=== PATIENT | male | born 1985 | race Two or more races ===

== ENCOUNTER 2018-09-16 17:20 | Emergency (ER) | payer OTHER ==
[~2018-09-16] VITALS: Ht 203.2 cm; Wt 120.5 kg
[2018-09-16 18:23] LABS: HEMATOCRIT 41.5 % (39.0-50.0); HEMOGLOBIN 14.6 g/dl (14.0-18.0); IMMATURE GRANULOCYTES 0.2 % (0.0-5.0); MEAN CELL VOLUME 84.2 fL CALC (80.0-100.0); MEAN CORPUSCULAR HGB 29.6 pG CALC (26.0-32.0); MEAN CORPUSCULAR HGB CONC 35.2 g/L CALC (32.0-36.0); NEUT# 7.93 thou/uL (1.82-7.42); RED BLOOD COUNT 4.93 mill/uL (4.70-6.10); RED CELL DISTRI WIDTH 11.4 % (11.5-15.5)
[2018-09-16 18:35] LABS: ALKALINE PHOSPHATASE 87 u/l (38-126); ANION GAP 14 (6-22 (CALC)); BILIRUBIN, TOTAL 1.6 mg/dL (0.0-1.4); BUN 8 mg/dL (9-20); BUN/CREATININE RATIO 10 (12-20 (CALC)); CARBON DIOXIDE 22 mmol/l (22-30); CHLORIDE 105 mmol/l (95-108); CREATININE 0.8 mg/dL (0.7-1.3); GFR > 60 ML/MIN (>=60 (CALC)); GFR FOR AFR.AMER. > 60 ML/MIN (>=60 (CALC)); POTASSIUM 3.7 mmol/l (3.5-5.1); SGOT/AST 21 u/l (17-59); SODIUM 138 mmol/l (137-146); TOTAL PROTEIN 7.2 g/dL (6.3-8.2)
[2018-09-16 19:17] LABS: URINE BILIRUBIN - DIPSTICK NEGATIVE (NEGATIVE); URINE BLOOD DIPSTICK NEGATIVE (NEGATIVE); URINE COLOR YELLOW; URINE GLUCOSE - DIPSTICK NEGATIVE (NEGATIVE); URINE KETONE TRACE mg/dL (NEGATIVE); URINE LEUK ESTERASE NEGATIVE (NEGATIVE); URINE NITRITE - DIPSTICK NEGATIVE (Negative); URINE PH 8.5 (4.5-8.0); URINE PROTEIN - DIPSTICK TRACE mg/dL (NEG-TRACE); URINE SPECIFIC GRAVITY 1.015; URINE UROBILINOGEN - DIPSTICK 0.2 E.U./dL (0.2)
[2018-09-16 19:20] LABS: BARBITURATES NEGATIVE (NEGATIVE); COCAINE NEGATIVE (NEGATIVE); METHADONE NEGATIVE (NEGATIVE); OXCYCODONE NEGATIVE (NEGATIVE); TETRAHYDROCANNABIONOL NEGATIVE (NEGATIVE); TRICYLIC ANTIDEPRESSANTS NEGATIVE (NEGATIVE)
[2018-09-16] MEDS ORDERED: PREVACID30 M1 PO (19:23)
[2018-09-16] MEDS ORDERED: ZOFRAN ODT4 MG PO (19:23)
[2018-09-16 19:33] VITALS: BP 138/72
== END 2018-09-16 19:48 | disposition home or self-care (01) ==
LOC: ED 17:20 → EDSEX 17:59 → ED 19:48
PROVIDERS: Emergency Medicine
DX: B34.9 Viral infection, unspecified (principal); R50.9 Fever, unspecified
CPT/HCPCS: S0164

== ENCOUNTER 2020-04-30 16:57 | Inpatient (IN) | payer MEDICAID ==
[~2020-04-30] VITALS: Ht 203.2 cm; Wt 108.9 kg
[~2020-04-30 16:57] MED LIST: PREVACID30 M1 PO; ZOFRAN ODT4 MG PO
--- NOTE | 2020-04-30 17:00 | NUR ---
PT AMB TO ROOM WITH STEADY GAIT
--- NOTE | 2020-04-30 17:30 | NUR ---
PT MEDICATED PER MAR FOR RLQ ABD PAIN; PT AND FAMILY ADVISED OF CONTINUED WAIT TIME; DENIES ANY OTHER NEEDS AT THIS TIME; VSS; WILL CONTINUE TO MONITOR
[2020-04-30 17:44] LABS: HEMATOCRIT 42.5 % (39.0-50.0); IMMATURE GRANULOCYTES 0.3 % (0.0-5.0); MEAN CELL VOLUME 84.2 fL CALC (80.0-100.0); MEAN CORPUSCULAR HGB 27.7 pG CALC (26.0-32.0); MEAN CORPUSCULAR HGB CONC 32.9 g/dL CAL (32.0-36.0); NEUT# 7.98 thou/uL (1.82-7.42); RED BLOOD COUNT 5.05 mill/uL (4.70-6.10); RED CELL DISTRI WIDTH 11.9 % (11.5-15.5)
[2020-04-30 18:06] LABS: ALBUMIN 4.7 g/dL (3.2-5.0); ALKALINE PHOSPHATASE 90 u/l (38-126); AMYLASE 60 u/l (30-110); ANION GAP 12 (6-22 (CALC)); BILIRUBIN, TOTAL 1.2 mg/dL (0.0-1.4); BUN 15 mg/dL (9-20); BUN/CREATININE RATIO 13 (12-20 (CALC)); CARBON DIOXIDE 29 mmol/l (22-30); CHLORIDE 101 mmol/l (95-108); CREATININE 1.1 mg/dL (0.7-1.3); GFR > 60 ML/MIN (>=60 (CALC)); GFR FOR AFR.AMER. > 60 ML/MIN (>=60 (CALC)); LIPASE 188 u/l (23-300); POTASSIUM 4.3 mmol/l (3.5-5.1); SGOT/AST 23 u/l (17-59); SODIUM 138 mmol/l (137-146); TOTAL PROTEIN 7.9 g/dL (6.3-8.2)
--- NOTE | 2020-04-30 18:25 | NUR ---
PT RESTING ON STRETCHER; NO S/S OF DISTRESS NOTED; PT STATES PAIN HAS IMPROVED; ADVISED OF CONTINUED WAIT TIME FOR TESTING; VSS; WILL CONTINUE TO MONITOR
--- NOTE | 2020-04-30 18:56 | NUR ---
REPORT TO COURTNEY PERDOMO
--- NOTE | 2020-04-30 19:07 | NUR ---
RETURNED FROM CT
--- NOTE | 2020-04-30 19:41 | NUR ---
PT RESTING. NAD. VSS. AT BEDSIDE. WAS IN AND ADVISED OF APPY AND ADMISSION.
[2020-04-30 20:08] LABS: URINE BILIRUBIN - DIPSTICK NEGATIVE (NEGATIVE); URINE BLOOD DIPSTICK NEGATIVE (NEGATIVE); URINE COLOR YELLOW; URINE GLUCOSE - DIPSTICK NEGATIVE (NEGATIVE); URINE KETONE NEGATIVE (NEGATIVE); URINE LEUK ESTERASE NEGATIVE (NEGATIVE); URINE NITRITE - DIPSTICK NEGATIVE (Negative); URINE PH 7.5 (4.5-8.0); URINE PROTEIN - DIPSTICK NEGATIVE (NEG-TRACE); URINE UROBILINOGEN - DIPSTICK 0.2 E.U./dL (0.2)
--- NOTE | 2020-04-30 20:44 | NUR ---
ATTEMPTED TO CALL REPORT.
--- NOTE | 2020-04-30 21:23 | NUR ---
REPORT TO JONATHAN/NURSE/MED-SURG.
--- NOTE | 2020-04-30 21:27 | NUR ---
TO FLOOR VIA W/C. MASK ON FOR COVID PRECAUTIONS. HOME. ADVISED OF 07:30 visiting hours and surgery at 0830. BELONGINGS HOME WITH . 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
--- NOTE | 2020-04-30 21:30 | NUR ---
PT ARRIVED TO THE FLOOR VIA , ACCOMPANIED BY ER STAFF. PT IS ALERT AND ORIETNED, PT AMBULATED FROM WC TO BATHROOM AND TO BED. VS OBTAINED AND ASSESSMENT COMPLETED. RESPIRATIONS ARE EVEN AND UNLABORED ON RA. LUNGS SOUND CLEAR. PEDAL PULSES ARE STRONG. PT STATES HIS PAIN IS BETTER THAN WHEN HE CAME INTO THE ER, IT'S MILD ACHE NOW. PT CAME UP TO REMOVE PT RING AND TAKE IT HOME. PT ORIENTED TO ROOM AND CALL [employer]. WILL CONTINUE TO MONITOR.
[2020-04-30 21:57] VITALS: BP 133/74
[2020-05-01] VITALS (9 sets, daily range): BP systolic 106–134; BP diastolic 63–83
--- NOTE | 2020-05-01 00:38 | NUR ---
PT RESTING IN BED, NO S/S OF DISTRESS AT THIS TIME.
--- NOTE | 2020-05-01 04:07 | NUR ---
PT RESTING IN BED, NO S/S OF DISTRESS AT THIS TIME. SAFETY PRECAUTIONS IN PLACE. WILL CONTINUE TO MONITOR.
[2020-05-01 05:29] LABS: HEMATOCRIT 40.2 % (39.0-50.0); HEMOGLOBIN 12.9 g/dl (14.0-18.0); IMMATURE GRANULOCYTES 0.3 % (0.0-5.0); MEAN CELL VOLUME 85.9 fL CALC (80.0-100.0); MEAN CORPUSCULAR HGB 27.6 pG CALC (26.0-32.0); MEAN CORPUSCULAR HGB CONC 32.1 g/dL CAL (32.0-36.0); NEUT# 4.97 thou/uL (1.82-7.42); RED BLOOD COUNT 4.68 mill/uL (4.70-6.10); RED CELL DISTRI WIDTH 11.9 % (11.5-15.5)
[2020-05-01 05:52] LABS: ANION GAP 9 (6-22 (CALC)); BUN 14 mg/dL (9-20); BUN/CREATININE RATIO 15 (12-20 (CALC)); CARBON DIOXIDE 29 mmol/l (22-30); CHLORIDE 105 mmol/l (95-108); CREATININE 0.9 mg/dL (0.7-1.3); GFR > 60 ML/MIN (>=60 (CALC)); GFR FOR AFR.AMER. > 60 ML/MIN (>=60 (CALC)); POTASSIUM 4.2 mmol/l (3.5-5.1); SODIUM 138 mmol/l (137-146)
--- NOTE | 2020-05-01 07:16 | NUR ---
PT RESTING IN BED, NO SIGNS OF DISTRESS NOTED, RESP EVEN AND UNLABORED. PT ALERT AND ORIENTED X3, DISCUSSED POC, PT NPO FOR SURGERY. IVF INFUSINGS, VSS, ASSESSMENT COMPLETED, PT VOICES NO NEEDS OR COMPLAINTS AT THIS TIME, CALL LIGHT IN REACH,CONTINUE TO MONITOR.
--- NOTE | 2020-05-01 08:33 | NUR ---
PT TAKEN DOWN TO OR VIA STRETCHER ACCOMPANIED BY OR NURSE, IN STABLE CONDITION.
[2020-05-01] MEDS ORDERED: PERCOCET 5/321 COMBO PO (11:35)
--- NOTE | 2020-05-01 13:30 | NUR ---
PT RESTING IN BED, S/O AT BEDSIDE ASSISTING PT TO BATHROOM, PT TOLERATED LUNCH WELL. CALL LIGHT IN REACH,CONTINUE TO MONITOR.
--- NOTE | 2020-05-01 15:48 | NUR ---
Discharge instructions given. Patient verbalizes understanding of same. Discharged in stable condition via Wheelchair to Home with significant other. All belongings sent with pt.
== END 2020-05-01 15:48 | disposition home or self-care (01) | DRG 342 ==
LOC: ED 16:57 → ED-I 19:23 → ED 19:53 → MS2 19:54
PROVIDERS: ADMIT Surgery; ATTEND Surgery
PROC: 0DTJ4ZZ Resection of Appendix, Percutaneous Endoscopic Approach (ICD-10-PCS; principal; 2020-05-01)
PROC: 0WQF0ZZ Repair Abdominal Wall, Open Approach (ICD-10-PCS; 2020-05-01)
DX: K35.80 Unspecified acute appendicitis (principal); K42.0 Umbilical hernia with obstruction, without gangrene; Z11.59 Encounter for screening for other viral diseases
CPT/HCPCS: J0131; Q9967

== ENCOUNTER 2021-05-15 22:49 | Emergency (ER) | payer MEDICAID ==
[~2021-05-15] VITALS: Ht 203.2 cm; Wt 109.0 kg
[~2021-05-15 22:49] MED LIST changes: +PERCOCET 5/321 COMBO PO
[2021-05-16] MEDS ORDERED: ROBITUSSIN AC10 ML PO (00:29)
[2021-05-16] MEDS ORDERED: ZPAK PO (00:29)
[2021-05-16 00:45] VITALS: BP 128/62
== END 2021-05-16 00:56 | disposition home or self-care (01) ==
LOC: ED 22:49
DX: B34.9 Viral infection, unspecified (principal); Z20.822 Contact with and (suspected) exposure to COVID-19

== ENCOUNTER 2021-05-28 14:57 | Emergency (ER) | payer MEDICAID ==
[~2021-05-28] VITALS: Ht 203.2 cm; Wt 91.0 kg
[~2021-05-28 14:57] MED LIST changes: +ROBITUSSIN AC10 ML PO; +ZPAK PO
[2021-05-28] MEDS ORDERED: MEDDOSEPAK PO (15:12)
[2021-05-28 16:08] LABS: HEMATOCRIT 44.1 % (39.0-50.0); HEMOGLOBIN 14.6 g/dl (14.0-18.0); IMMATURE GRANULOCYTES 0.2 % (0.0-5.0); MEAN CELL VOLUME 85.1 fL CALC (80.0-100.0); MEAN CORPUSCULAR HGB 28.2 pG CALC (26.0-32.0); MEAN CORPUSCULAR HGB CONC 33.1 g/dL CAL (32.0-36.0); NEUT# 4.48 thou/uL (1.82-7.42); RED BLOOD COUNT 5.18 mill/uL (4.70-6.10); RED CELL DISTRI WIDTH 11.9 % (11.5-15.5)
[2021-05-28 16:25] LABS: ALKALINE PHOSPHATASE 67 u/l (38-126); ANION GAP 13 (6-22 (CALC)); BILIRUBIN, TOTAL 0.7 mg/dL (0.0-1.4); BUN 11 mg/dL (9-20); BUN/CREATININE RATIO 13 (12-20 (CALC)); CARBON DIOXIDE 30 mmol/l (22-30); CHLORIDE 95 mmol/l (95-108); CREATININE 0.9 mg/dL (0.7-1.3); GFR > 60 ML/MIN (>=60 (CALC)); GFR FOR AFR.AMER. > 60 ML/MIN (>=60 (CALC)); LIPASE 272 u/l (23-300); POTASSIUM 4.5 mmol/l (3.5-5.1); SGOT/AST 26 u/l (17-59); SODIUM 134 mmol/l (137-146); TOTAL PROTEIN 7.7 g/dL (6.3-8.2)
[2021-05-28 16:25] LABS: D-DIMER 0.44 mg/L (0.19-0.60)
[2021-05-28 16:29] LABS: ACT PARTIAL THROMBO TIME 27.2 SECONDS (20.0-32.5); INTERNATIONAL NORMALIZED RATIO 1.1 RATIO (0.7-1.3)
[2021-05-28] MEDS ORDERED: ZPAK PO (18:29)
[2021-05-28] MEDS ORDERED: DECADRON2 MG PO (18:29)
[2021-05-28] MEDS ORDERED: VENTOLIN HFA IN (18:29)
[2021-05-28 18:36] VITALS: BP 143/80
== END 2021-05-28 18:55 | disposition home or self-care (01) ==
LOC: ED 14:57
DX: U07.1 COVID-19 (principal); J12.82 Pneumonia due to coronavirus disease 2019
CPT/HCPCS: Q9967

== ENCOUNTER 2021-12-16 15:42 | Emergency (ER) | payer MEDICAID ==
[~2021-12-16] VITALS: Ht 203.2 cm; Wt 111.0 kg
[2021-12-16] VITALS (9 sets, daily range): BP systolic 113–137; BP diastolic 76–91
[~2021-12-16 15:42] MED LIST changes: +DECADRON2 MG PO; +MEDDOSEPAK PO; +VENTOLIN HFA IN
[2021-12-16] MEDS ORDERED: FLEXERIL5 M1 PO ×2 (18:05→18:42)
[2021-12-16] MEDS ORDERED: MEDDOSEPAK PO ×2 (18:05→18:42)
[2021-12-16] MEDS ORDERED: ULTRAM50 MG PO ×2 (18:05→18:42)
== END 2021-12-16 18:13 | disposition home or self-care (01) ==
LOC: ED 15:42
DX: S39.012A Strain of muscle, fascia and tendon of lower back, initial encounter (principal); X50.0XXA Overexertion from strenuous movement or load, initial encounter; Y93.89 Activity, other specified

== ENCOUNTER 2023-04-19 06:57 | Emergency (ER) | payer OTHER ==
[~2023-04-19] VITALS: Ht 203.2 cm; Wt 116.6 kg
[~2023-04-19 06:57] MED LIST changes: +FLEXERIL5 M1 PO; +ULTRAM50 MG PO
[2023-04-19 07:10] VITALS: BP 115/69
[2023-04-19] MEDS ORDERED: MEDROL DOSEPAK4 MG PO (07:38)
[2023-04-19] MEDS ORDERED: MELOXICAM7.5 MG PO (07:38)
[2023-04-19 07:41] VITALS: BP 115/69
== END 2023-04-19 07:56 | disposition home or self-care (01) ==
LOC: ED 06:57
DX: M77.12 Lateral epicondylitis, left elbow (principal); M77.11 Lateral epicondylitis, right elbow

== ENCOUNTER 2023-08-29 08:04 | Emergency (ER) | payer OTHER ==
[~2023-08-29] VITALS: Ht 203.2 cm; Wt 113.4 kg
[~2023-08-29 08:04] MED LIST changes: +MEDROL DOSEPAK4 MG PO; +MELOXICAM7.5 MG PO
[2023-08-29 08:24] VITALS: BP 137/81
[2023-08-29 08:30] VITALS: BP 144/91
[2023-08-29 08:45] VITALS: BP 131/88
[2023-08-29 08:58] VITALS: BP 144/91
== END 2023-08-29 08:57 | disposition home or self-care (01) ==
LOC: ED 08:04
DX: M77.12 Lateral epicondylitis, left elbow (principal); M77.11 Lateral epicondylitis, right elbow

== ENCOUNTER 2024-10-21 18:46 | Emergency (ER) | payer SELFPAY ==
[~2024-10-21] VITALS: Ht 203.2 cm; Wt 113.0 kg
[2024-10-21] MEDS ORDERED: ONDANSETRON HCl 4 MG/2 ML SDV IV STA (20:14)
[2024-10-21] MEDS ORDERED: KETOROLAC TROMETHAMINE 15 MG/ML SDV IV STA (20:14)
[2024-10-21 20:44] LABS: BASO% 0.4 % (0-3); EOS% 6.2 % (0-8); HEMATOCRIT 42.3 % (39.0-50.0); HEMOGLOBIN 14.2 g/dl (14.0-18.0); IMMATURE GRANULOCYTES 0.1 % (0.0-5.0); LYMPH% 22.9 % (15-41); MEAN CELL VOLUME 84.3 fL CALC (80.0-100.0); MEAN CORPUSCULAR HGB 28.3 pG CALC (26.0-32.0); MEAN CORPUSCULAR HGB CONC 33.6 g/dL CAL (32.0-36.0); MONO% 5.9 % (2-13); NEUT# 6.21 thou/uL (1.82-7.42); NEUT% 64.5 % (42-76); RED BLOOD COUNT 5.02 mill/uL (4.70-6.10); RED CELL DISTRI WIDTH 11.9 % (11.5-15.5)
[2024-10-21 20:44] LABS: URINE BILIRUBIN - DIPSTICK Negative (NEGATIVE); URINE BLOOD DIPSTICK Small (NEGATIVE); URINE GLUCOSE - DIPSTICK Negative (NEGATIVE); URINE KETONE Negative (NEGATIVE); URINE LEUK ESTERASE Negative (NEGATIVE); URINE NITRITE - DIPSTICK Negative (Negative); URINE PROTEIN - DIPSTICK Negative (NEG-TRACE); URINE UROBILINOGEN - DIPSTICK 0.2 E.U./dL (0.2)
[2024-10-21 20:47] LABS: URINE COLOR Yellow
[2024-10-21 20:52] LABS: URINE SQUAMOUS EPITHELIAL CELL RARE EPI/hpf (0-FEW)
[2024-10-21 20:53] LABS: ALBUMIN 3.9 g/dL (3.2-5.0); BILIRUBIN, TOTAL 0.8 mg/dL (0.2-1.3); POTASSIUM 3.7 mmol/l (3.5-5.1); TOTAL PROTEIN 6.9 g/dL (6.3-8.2)
[2024-10-21 22:01] VITALS: BP 144/86
== END 2024-10-21 22:01 | disposition home or self-care (01) | DRG 443 ==
LOC: ED 18:46
PROVIDERS: Internal Medicine
DX: R16.2 Hepatomegaly with splenomegaly, not elsewhere classified (principal); R91.1 Solitary pulmonary nodule; R31.9 Hematuria, unspecified; R10.9 Unspecified abdominal pain
CPT/HCPCS: J1885; J2405